=== PATIENT | male | born 1995 | race Caucasian/White ===

== ENCOUNTER 2019-04-30 14:51 | Emergency (ER) | payer OTHER ==
[~2019-04-30] VITALS: Ht 175.3 cm; Wt 77.1 kg
== END 2019-04-30 17:55 | disposition home or self-care (01) ==
LOC: ER 14:51
DX: S70.12XA Contusion of left thigh, initial encounter (principal); S80.02XA Contusion of left knee, initial encounter; S79.812A Other specified injuries of left hip, initial encounter; W22.8XXA Striking against or struck by other objects, initial encounter; Y93.67 Activity, basketball; Y92.89 Other specified places as the place of occurrence of the external cause; Y99.8 Other external cause status